=== PATIENT | female | born 1940 | race Two or more races ===

== ENCOUNTER 2020-04-24 13:30 | Outpatient (CLI) | payer OTHER ==
[~2020-04-24] VITALS: Ht 162.6 cm; Wt 56.7 kg
[2020-04-24] MEDS ORDERED: LOSARTAN POTAS100 MG (13:44)
[2020-04-24] MEDS ORDERED: LATANOPROST2.5 ML (13:47)
== END 2020-04-24 14:20 | disposition home or self-care (01) ==
LOC: OFIC 805 13:30
PROVIDERS: ATTEND Otolaryngology
DX: H90.42 Sensorineural hearing loss, unilateral, left ear, with unrestricted hearing on the contralateral side (principal); H61.22 Impacted cerumen, left ear